=== PATIENT | female | born 1965 | race Caucasian/White ===

== ENCOUNTER 2019-10-02 16:38 | Observation (INO) ==
[2019-10-02 18:16] LABS: Bilirubin,Urine Small (Negative); Blood,Urine Negative (Negative); Clarity,Urine Cloudy (Clear); Color,Urine Dark Yellow (Yellow); Glucose,Urine (UA) Normal (Normal); Ketones,Urine 40 mg/dL (Negative); Leukocyte Esterase,Urine Negative (Negative); Nitrite,Urine Negative (Negative); PH,Urine 6.5 pH Units (5.0-8.0); Protein,Urine Trace mg/dL (Neg-Trace); Specific Gravity,Urine > 1.030 (1.010-1.025); Urobilinogen,Urine Normal (Normal)
[2019-10-02] MEDS ORDERED: Isovue-370 500 ML BOTTLE IVP ONE (18:17)
[2019-10-02 18:18] LABS: Bacteria,Urine Few per hpf (None-Few); Hyaline Casts,Urine None Seen per lpf (None-Few); Squamous Epithelial Cell,Urine Many per lpf (None-Few); WBC,Urine 0-3 per hpf (0-3)
[2019-10-02] MEDS ORDERED: Morphine Sulfate 2 MG/ML SYRINGE IVP ONE (18:18)
[2019-10-02] MEDS ORDERED: Ondansetron 4 MG/2 ML VIAL IVP ONE (18:18)
[2019-10-02] MEDS ORDERED: cefTRIAXone 1,000 MG in Water for inj. (sterile) 10 ML IVP ONE (18:18)
[2019-10-02 18:31] LABS: Basophils # 0.1 K/mcL (0.0-0.2); Basophils % 0.6 %; Eosinophils % 0.3 %; Hematocrit 37.8 % (35.3-44.9); Hemoglobin 12.7 g/dL (11.5-15.4); Immature Granulocytes % 0.3 % (0-4); Lymphocytes # 2.5 K/mcL (0.6-4.6); Lymphocytes % 23.3 %; Mean Corpuscular HGB Conc 33.6 g/dL (31.6-35.5); Mean Corpuscular Hemoglobin 28.3 pg (28.0-33.3); Mean Corpuscular Volume 84.2 fL (83.0-100.0); Mean Platelet Volume 9.4 fL (9.4-12.4); Monocytes # 0.7 K/mcL (0.0-1.3); Monocytes % 6.5 %; Neutrophils # 7.4 K/mcL (1.6-8.9); Platelet Count 430 K/mcL (140-400); Red Blood Count 4.49 M/mcL (3.82-4.97); Red Cell Distribution Width 13.8 % (11.5-14.5); White Blood Count 10.7 K/mcL (4.3-11.1)
[2019-10-02 18:52] LABS: Alanine Aminotransferase 25 Units/L (7-52); Albumin 4.6 g/dL (3.5-5.7); Albumin/Globulin Ratio 1.5 (1.1-2.2); Alkaline Phosphatase 64 Units/L (34-104); Aspartate Amino Transferase 34 Units/L (13-39); BUN/Creatinine Ratio 26 (6-26); Bilirubin,Direct 0.2 mg/dL (0.0-0.2); Bilirubin,Indirect 0.3 mg/dL (0.0-1.0); Bilirubin,Total 0.5 mg/dL (0.3-1.0); Blood Urea Nitrogen 19 mg/dL (6-20); Carbon Dioxide 24 mEq/L (23-29); Chloride 101 mEq/L (98-107); Glucose 100 mg/dL (70-105); Lipase 13 Units/L (11-82); Osmolality,Calculated 286 (280-300); Potassium 3.6 mEq/L (3.5-5.1); Sodium 137 mEq/L (136-145); Total Protein 7.6 g/dL (6.4-8.9); eGFR For African Americans > 60 (> 60); eGFR For Non-African Americans > 60 (> 60)
[2019-10-02] MEDS ORDERED: *HR* HYDROmorphone (PF) 1 MG/ML SYRINGE IVP ONE ×2 (19:51→20:42)
[2019-10-02] MEDS ORDERED: Orphenadrine 60 MG/2 ML VIAL IV ONE (20:02)
[2019-10-02] MEDS ORDERED: Dexamethasone 4 MG/ML VIAL IVP ONE (20:03)
[2019-10-02] MEDS ORDERED: *HR* Nalbuphine 10 MG/ML AMPUL IV ONE (21:49)
[2019-10-02] MEDS ORDERED: *HR* Promethazine 25 MG/ML VIAL IVP PRN (21:50)
[2019-10-02] MEDS ORDERED: Ondansetron 4 MG/2 ML VIAL IVP PRN (21:50)
[2019-10-02] MEDS ORDERED: Ketorolac 30 MG/ML VIAL IVP PRN (21:52)
[2019-10-02] MEDS: Ringers Solution, Lactated 1,000 ML IVC SCH (22:52)
[2019-10-03] MEDS: *HR* OxyCODONE Immed Rel 5 MG TABLET PO PRN ×2 (03:05→08:58)
[2019-10-03] MEDS: Ringers Solution, Lactated 1,000 ML IVC SCH (03:06)
[2019-10-03] MEDS: *HR* Heparin 5,000 UNIT/ML VIAL SQ SCH ×2 (05:29→17:34)
[2019-10-03] MEDS: Pyridoxine (B-6) 50 MG TABLET PO SCH (08:59)
[2019-10-03] MEDS ORDERED: 0.9 % Sodium Chloride 2,000 ML IVC SCH (10:30)
[2019-10-03] MEDS ORDERED: 0.9 % Sodium Chloride 1,000 ML ONE (13:40)
[2019-10-03] MEDS: Ketorolac 30 MG/ML VIAL IVP SCH ×3 (13:51→23:48)
[2019-10-03] MEDS: 0.9 % Sodium Chloride 2,000 ML IVC SCH ×2 (13:52→23:49)
[2019-10-03] MEDS: cefTRIAXone 1,000 MG in Water for inj. (sterile) 10 ML IVP SCH (13:52)
[2019-10-03] MEDS: *HR* HYDROmorphone (PF) 1 MG/ML SYRINGE IVP PRN ×2 (14:07→20:51)
[2019-10-03] MEDS ORDERED: Methocarbamol 750 MG TABLET PO ONE (21:50)
[2019-10-04] MEDS: *HR* HYDROmorphone (PF) 1 MG/ML SYRINGE IVP PRN ×2 (02:32→08:22)
[2019-10-04 04:57] LABS: Basophils % 0.5 %; Eosinophils # 0.1 K/mcL (0.0-0.6); Eosinophils % 0.6 %; Hematocrit 32.7 % (35.3-44.9); Immature Granulocytes % 0.2 % (0-4); Lymphocytes # 2.8 K/mcL (0.6-4.6); Lymphocytes % 31.9 %; Mean Corpuscular HGB Conc 33.9 g/dL (31.6-35.5); Mean Corpuscular Hemoglobin 28.9 pg (28.0-33.3); Mean Corpuscular Volume 85.2 fL (83.0-100.0); Mean Platelet Volume 9.5 fL (9.4-12.4); Monocytes # 0.7 K/mcL (0.0-1.3); Neutrophils # 5.2 K/mcL (1.6-8.9); Platelet Count 315 K/mcL (140-400); Red Blood Count 3.84 M/mcL (3.82-4.97); Red Cell Distribution Width 13.9 % (11.5-14.5); Segmented Neutrophils % 58.8 %; White Blood Count 8.8 K/mcL (4.3-11.1)
[2019-10-04 04:59] LABS: Hemoglobin 11.1 g/dL (11.5-15.4)
[2019-10-04 05:19] LABS: BUN/Creatinine Ratio 30 (6-26); Blood Urea Nitrogen 19 mg/dL (6-20); Calcium 8.4 mg/dL (8.6-10.3); Carbon Dioxide 24 mEq/L (23-29); Chloride 106 mEq/L (98-107); Glucose 92 mg/dL (70-105); Osmolality,Calculated 288 (280-300); Potassium 3.5 mEq/L (3.5-5.1); Sodium 138 mEq/L (136-145); eGFR For African Americans > 60 (> 60); eGFR For Non-African Americans > 60 (> 60)
[2019-10-04] MEDS: *HR* Heparin 5,000 UNIT/ML VIAL SQ SCH ×3 (05:49→18:01)
[2019-10-04] MEDS: Ketorolac 30 MG/ML VIAL IVP SCH ×2 (05:49→11:11)
[2019-10-04] MEDS: Pyridoxine (B-6) 50 MG TABLET PO SCH (08:22)
[2019-10-04] MEDS ORDERED: Ibuprofen 800 MG TABLET PO PRN (10:42)
[2019-10-04] MEDS ORDERED: Methocarbamol 750 MG TABLET PO PRN (10:47)
[2019-10-04] MEDS: cefTRIAXone 1,000 MG in Water for inj. (sterile) 10 ML IVP SCH (11:11)
[2019-10-04] MEDS ORDERED: 0.9 % Sodium Chloride 1,000 ML IVC SCH (13:25)
[2019-10-04] MEDS ORDERED: Pantoprazole 40 MG VIAL IVP SCH (13:30)
[2019-10-04] MEDS: 0.9 % Sodium Chloride 2,000 ML IVC SCH (14:08)
[2019-10-04] MEDS: Morphine Sulfate 2 MG/ML SYRINGE IVP PRN ×3 (14:08→22:30)
[2019-10-04] MEDS ORDERED: *HR* FentaNYL (PF) 100 MCG/2 ML VIAL ONE (15:22)
[2019-10-04] MEDS ORDERED: *HR* Midazolam HCl 5 MG/5 ML VIAL IVP ONE ×2 (15:22→15:50)
[2019-10-04] MEDS ORDERED: *HR* FentaNYL (PF) 100 MCG/2 ML VIAL IVP ONE (15:50)
[2019-10-04] MEDS: Pantoprazole 40 MG in 0.9 % Sodium Chloride Mini Bag 100 ML IVC SCH ×2 (17:58→20:42)
[2019-10-04] MEDS: Metoclopramide 10 MG/2 ML VIAL IVP SCH ×2 (17:59→22:58)
[2019-10-04] MEDS: levoFLOXacin 500 MG/100 ML 500 MG/100 ML BAG IVPB SCH (18:23)
[2019-10-04] MEDS: MetroNIDAZOLE 500 MG/100 ML 500 MG/100 ML BAG IVPB SCH ×2 (19:22→22:58)
[2019-10-05] MEDS ORDERED: Pantoprazole 40 MG VIAL IVP ONE (01:40)
[2019-10-05] MEDS: Morphine Sulfate 2 MG/ML SYRINGE IVP PRN ×4 (02:41→17:48)
[2019-10-05 05:22] LABS: Basophils % 0.3 %; Eosinophils # 0.2 K/mcL (0.0-0.6); Eosinophils % 2.8 %; Hematocrit 35.5 % (35.3-44.9); Hemoglobin 11.7 g/dL (11.5-15.4); Immature Granulocytes % 0.5 % (0-4); Lymphocytes # 2.1 K/mcL (0.6-4.6); Lymphocytes % 24.4 %; Mean Corpuscular Hemoglobin 28.4 pg (28.0-33.3); Mean Corpuscular Volume 86.2 fL (83.0-100.0); Mean Platelet Volume 9.7 fL (9.4-12.4); Monocytes # 0.8 K/mcL (0.0-1.3); Monocytes % 9.3 %; Neutrophils # 5.4 K/mcL (1.6-8.9); Platelet Count 340 K/mcL (140-400); Red Blood Count 4.12 M/mcL (3.82-4.97); Red Cell Distribution Width 13.7 % (11.5-14.5); Segmented Neutrophils % 62.7 %; White Blood Count 8.6 K/mcL (4.3-11.1)
[2019-10-05] MEDS: *HR* Heparin 5,000 UNIT/ML VIAL SQ SCH ×2 (05:58→17:54)
[2019-10-05] MEDS: MetroNIDAZOLE 500 MG/100 ML 500 MG/100 ML BAG IVPB SCH ×4 (06:36→23:53)
[2019-10-05] MEDS: Metoclopramide 10 MG/2 ML VIAL IVP SCH ×4 (06:37→23:53)
[2019-10-05] MEDS ORDERED: levoFLOXacin 500 MG TABLET PO SCH (09:00)
[2019-10-05] MEDS: Pyridoxine (B-6) 50 MG TABLET PO SCH (10:09)
[2019-10-05] MEDS ORDERED: Morphine Sulfate 2 MG/ML SYRINGE IVP PRN (12:46)
[2019-10-05] MEDS: 0.9 % Sodium Chloride 2,000 ML IVC SCH (13:57)
[2019-10-05] MEDS: levoFLOXacin 500 MG/100 ML 500 MG/100 ML BAG IVPB SCH (16:10)
[2019-10-05] MEDS: Pantoprazole 40 MG VIAL IVP SCH (16:10)
[2019-10-05] MEDS ORDERED: Acetaminophen IV 500 MG/50 ML INFUS..BTL IVPB ONE (19:46)
[2019-10-06] MEDS: Morphine Sulfate 2 MG/ML SYRINGE IVP PRN (03:24)
[2019-10-06] MEDS ORDERED: 0.9 % Sodium Chloride 1,000 ML ONE (05:03)
[2019-10-06] MEDS: MetroNIDAZOLE 500 MG/100 ML 500 MG/100 ML BAG IVPB SCH (05:13)
[2019-10-06] MEDS: Pantoprazole 40 MG VIAL IVP SCH (05:13)
[2019-10-06] MEDS: *HR* Heparin 5,000 UNIT/ML VIAL SQ SCH (05:13)
[2019-10-06] MEDS: Metoclopramide 10 MG/2 ML VIAL IVP SCH ×2 (05:14→11:31)
[2019-10-06] MEDS ORDERED: *HR* Propofol 200 MG/20 ML VIAL IVP ONE ×2 (08:22→09:08)
[2019-10-06] MEDS: Pyridoxine (B-6) 50 MG TABLET PO SCH (09:53)
[2019-10-06 10:45] VITALS: BP 159/72
[2019-10-06] MEDS ORDERED: metroNIDAZOLE 500 MG TABLET PO SCH (15:00)
== END 2019-10-06 14:46 | disposition home or self-care (01) ==
LOC: EMEROOARM 16:38 → 3ANU 16:38 → 3BNU 21:08
PROVIDERS: ADMIT Internal Medicine; ATTEND Internal Medicine